=== PATIENT | female | born 1995 | race American Indian/Alaskan Native ===

== ENCOUNTER 2018-04-18 16:23 | Emergency (ER) | payer OTHER ==
[2018-04-18 19:52] LABS: HCG Qualitative,Urine Negative (Negative)
[2018-04-18 19:55] LABS: Bacteria,Urine 4+ /HPF (Negative); Bilirubin,Urine NEG (Negative); Blood,Urine NEG (Negative); Color,Urine Yellow (Yellow); Mucus,Urine FEW /HPF; Protein,Urine <15 mg/dL mg/dL (Negative)
[2018-04-18] MEDS ORDERED: ULTRAM ONE (20:06)
[2018-04-18] MEDS ORDERED: MOTRIN PO ONE ×2 (20:32→20:43)
[2018-04-18 20:40] LABS: Basophils % (Auto) 0.4 % (0.0-1.8); Eosinophils % (Auto) 0.4 % (0.0-4.3); Hematocrit 34.7 % (30.3-42.9); Lymphocytes # (Auto) 1.1 K/mm3 (1.2-5.4); Mean Corpuscular HGB Conc 35 % (30-34); Mean Corpuscular Hemoglobin 29 pg (28-32); Mean Corpuscular Volume 84 fl (79-97); Monocytes # (Auto) 0.4 K/mm3 (0.0-0.8); Monocytes % (Auto) 7.7 % (0.0-7.3); Platelet Count 225 K/mm3 (140-440); Red Blood Count 4.14 M/mm3 (3.65-5.03); Red Cell Distribution Width 12.8 % (13.2-15.2)
[2018-04-18] MEDS ORDERED: ULTRAM PO ONE (20:43)
[2018-04-18] MEDS ORDERED: ROCEPHIN/NS 1 GM/50 ML 1 GM/50 ML BAG IV ONE (21:00)
[2018-04-18] MEDS ORDERED: NACL 0.9% 1000 ML 1,000 ML IV ONE (21:00)
[2018-04-18 21:09] LABS: Alanine Aminotransferase 7 units/L (7-56); Albumin 4.2 g/dL (3.9-5); BUN/Creatinine Ratio 16; Blood Urea Nitrogen 8 mg/dL (7-17); Calcium 9.2 mg/dL (8.4-10.2); Hemolysis Index 52
[2018-04-18] MEDS ORDERED: cefTRIAXone 1 GM in NACL 0.9% 20 ML IV ONE (21:15)
--- NOTE | 2018-04-18 21:37 | Emergency Department Report ---
ED Back Pain/Injury HPI - General Chief Complaint: Back Pain/Injury Stated Complaint: BACK PAIN Time Seen by Provider: 04/18/18 20:57 Source: patient, family Limitations: No Limitations - History of Present Illness Initial Comments: Patient's a 22-year-old -British female no known medical history patient states bilateral flank and low back pain 1 week with urinary frequency denies dysuria no hematuria no fever no nausea vomiting did experience malaise today stating subjective near syncope prior describes no syncopal episode no oral or or prodromal event there's been no nausea vomiting no chest pain no diarrhea no shortness of breath no wheezing patient's tolerating by mouth intake at this time symptoms. Patient states not sexually active last menstrual period 3 weeks ago MD Complaint: back pain Onset/Timin -: week(s) Similar Symptoms Previously: No Place: home Radiation: none Severity: moderate Severity scale (0 -10): 3 Quality: aching Consistency: intermittent Improves With: none Worsens With: none Associated Symptoms: fever/chills, loss of appetite, malaise. denies: confusion , chest pain, numbness, difficulty walking, cough, difficulty urinating, incontinence, constipation, headaches, abdominal pain, nausea/vomiting, rash, seizure, shortness of breath, syncope - Related Data Previous Rx's Medication Instructions Recorded Last Taken Type Ciprofloxacin HCl [Cipro] 500 mg PO BID #20 tablet 04/18/18 Unknown Rx Ibuprofen [Motrin 600 MG tab] 600 mg PO Q8H PRN #30 tablet 04/18/18 Unknown Rx Allergies Allergy/AdvReac Type Severity Reaction Status Date / Time No Known Allergies Allergy Unverified 04/18/18 16:41 ED Review of Systems ROS: Stated complaint: BACK PAIN Other details as noted in HPI Constitutional: chills, fever Eyes: denies: eye pain, eye discharge, vision change ENT: denies: ear pain, throat pain Respiratory: denies: cough, shortness of breath, wheezing Cardiovascular: denies: chest pain, palpitations Endocrine: no symptoms reported Gastrointestinal: denies: abdominal pain, nausea, vomiting, diarrhea, constipation, hematemesis, melena, hematochezia Genitourinary: frequency. denies: urgency, dysuria, hematuria, discharge, abnormal menses, dyspareunia Musculoskeletal: denies: back pain, joint swelling, arthralgia Skin: denies: rash, lesions Neurological: denies: headache, weakness, paresthesias Psychiatric: denies: anxiety, depression Hematological/Lymphatic: denies: easy bleeding, easy bruising ED Past Medical Hx - Past Medical History Previous Medical History?: No - Surgical History Past Surgical History?: No - Social History Smoking Status: Never Smoker Substance Use Type: None - Medications Home Medications: Home Medications Medication Instructions Recorded Confirmed Last Taken Type Ciprofloxacin HCl [Cipro] 500 mg PO BID #20 tablet 04/18/18 Unknown Rx Ibuprofen [Motrin 600 MG tab] 600 mg PO Q8H PRN #30 tablet 04/18/18 Unknown Rx ED Physical Exam - General Limitations: No Limitations General appearance: alert, in no apparent distress - Head Head exam: Present: atraumatic, normocephalic - Eye Eye exam: Present: normal appearance - ENT ENT exam: Present: mucous membranes moist - Neck Neck exam: Present: normal inspection - Respiratory Respiratory exam: Present: normal lung sounds bilaterally. Absent: respiratory distress - Cardiovascular Cardiovascular Exam: Present: regular rate, normal rhythm. Absent: systolic murmur, diastolic murmur, rubs, gallop - GI/Abdominal GI/Abdominal exam: Present: soft, normal bowel sounds. Absent: distended, tenderness, guarding, rebound, rigid, organomegaly, mass, bruit, pulsatile mass , hernia - Rectal Rectal exam: Present: deferred - Extremities Exam Extremities exam: Present: normal inspection - Back Exam Back exam: Present: normal inspection, full ROM. Absent: tenderness, CVA tenderness (R), CVA tenderness (L), muscle spasm, paraspinal tenderness, vertebral tenderness, rash noted - Neurological Exam Neurological exam: Present: alert, oriented X3, CN II-XII intact, normal gait, reflexes normal - Psychiatric Psychiatric exam: Present: normal affect, normal mood - Skin Skin exam: Present: warm, dry, intact, normal color. Absent: rash ED Course Vital Signs 04/18/18 04/18/18 04/18/18 16:42 20:42 20:44 Temperature 99.3 F 101.4 F H Pulse Rate 96 H Respiratory 15 18 Rate Blood Pressure 97/66 O2 Sat by Pulse 100 Oximetry 04/18/18 04/18/18 20:45 20:47 Temperature Pulse Rate Respiratory 18 18 Rate Blood Pressure O2 Sat by Pulse 100 Oximetry ED Medical Decision Making - Lab Data Result diagrams: 04/18/18 20:20 04/18/18 20:20 Laboratory Tests 04/18/18 04/18/18 04/18/18 19:42 20:20 20:20 WBC 5.6 RBC 4.14 Hgb 12.0 Hct 34.7 MCV 84 MCH 29 MCHC 35 H RDW 12.8 L Plt Count 225 Lymph % (Auto) 20.0 [place] % (Auto) 7.7 H Eos % (Auto) 0.4 Baso % (Auto) 0.4 Lymph # 1.1 L [place] # 0.4 Eos # 0.0 Baso # 0.0 Seg Neutrophils % 71.5 H Seg Neutrophils # 4.0 Sodium 137 Potassium 4.0 Chloride 96.5 L Carbon Dioxide 27 Anion Gap 18 BUN 8 Creatinine 0.5 L Estimated GFR > 60 BUN/Creatinine Ratio 16 Glucose 100 Calcium 9.2 Total Bilirubin 0.50 AST 18 ALT 7 Alkaline Phosphatase 39 Total Protein 8.0 Albumin 4.2 Albumin/Globulin Ratio 1.1 Urine Color Yellow Urine Turbidity Clear Urine pH 7.0 Ur Specific [place] 1.014 Urine Protein <15 mg/dl Urine Glucose (UA) Neg Urine Ketones Neg Urine Blood Neg Urine Nitrite Neg Ur Reducing Substances Not Reportable Urine Bilirubin Neg Urine Ictotest Not Reportable Urine Urobilinogen 4.0 Ur Leukocyte Esterase Lg Urine WBC (Auto) 36.0 H Urine RBC (Auto) 6.0 U Epithel Cells (Auto) 5.0 Urine Bacteria (Auto) 4+ Urine Mucus Few Urine HCG, Qual Negative - Radiology Data Radiology results: report reviewed, image reviewed - Medical Decision Making improved, Fusion. Ibuprofen patient tolerated by mouth intake now is noted UA for large leukocytes white blood cells abdomen is benign normal exam no CVA tenderness no hematuria no hesitation with urine no history of renal stones , ekg nsr, pt appears well nontoxic, this is likely UTI there is no white count not likely pilonidal plan hydrate Rocephin DC'd home with Cipro twice a day for 10 days follow with PCP patient verbalizes agreement and understanding with discharge plan DC'd to home in stable condition at this time Critical care attestation.: If time is entered above; I have spent that time in minutes in the direct care of this critically ill patient, excluding procedure time. ED Disposition Clinical Impression: Mild dehydration UTI (urinary tract infection) Qualifiers: Urinary tract infection type: acute cystitis Hematuria presence: without hematuria Qualified Code(s): N30.00 - Acute cystitis without hematuria Disposition: TO HOME OR SELFCARE Is pt being admited?: No Does the pt Need Aspirin: No Condition: Good Instructions: Urinary Tract Infection in Women (ED) Prescriptions: Ciprofloxacin HCl [Cipro] 500 mg PO BID #20 tablet Ibuprofen [Motrin 600 MG tab] 600 mg PO Q8H PRN #30 tablet PRN Reason: Pain / fever Referrals: [facility] [Outside] - 3-5 Days Time of Disposition: 21:47
[2018-04-18 21:47] VITALS: BP 108/60
== END 2018-04-18 22:50 | disposition home or self-care (01) ==
LOC: ED 16:23
DX: E86.0 Dehydration (principal); N39.0 Urinary tract infection, site not specified
CPT/HCPCS: 36415; 80053; 81001; 81025; 85025; 87040; 87076; 87086; 87186; 93005; 93010; 96365; 99284; J0696; J7030